=== PATIENT | male | born 1995 | race Two or more races ===

== ENCOUNTER 2017-11-06 16:12 | Emergency (ER) | payer OTHER ==
[~2017-11-06] VITALS: Ht 170.2 cm; Wt 111.1 kg
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
--- NOTE | 2017-11-06 16:38 | NUR ---
CALLED [facility], SPOKE WITH ORACIO, PRESENTED PT, TRANSFERRED CALL TO DR. LU
[2017-11-06] MEDS ORDERED: ONDANSETRON HCL/PF 4 MG/2 ML VIAL ONE (16:56)
[2017-11-06] MEDS ORDERED: HYDROMORPHONE INJ 2 MG/ML DISP.SYRIN ONE ×2 (16:57→19:43)
[2017-11-06] MEDS ORDERED: TDAP [DIPH/PERTUSSIS/TET] 0.5 ML VIAL IM ONE ×2 (16:57→17:00)
[2017-11-06] MEDS ORDERED: HYDROMORPHONE 1 MG/1 ML DISP.SYRIN IV ONE (17:00)
[2017-11-06] MEDS ORDERED: IV NS 0.9% 1,000 ML BAG IV ONE (17:00)
[2017-11-06] MEDS ORDERED: BACI/NEOM/POLY B OINT PKT 1 UDPKT PACKET TP ONE (17:00)
[2017-11-06] MEDS ORDERED: ONDANSETRON HCL/PF 4 MG/2 ML VIAL IVP ONE (17:00)
--- NOTE | 2017-11-06 17:44 | NUR ---
CALLED [facility] FOR TRANSPORT TO [facility], [place] [address], TRIP #[id number]
--- NOTE | 2017-11-06 18:54 | NUR ---
MD LU SPOKE TO [facility] REGARDING PATIENT'S TRANSFER.
--- NOTE | 2017-11-06 19:15 | NUR ---
REPORT RECEIVED FROM IAN HAYNES FOR [facility].
--- NOTE | 2017-11-06 19:45 | NUR ---
MEDICATED PER MD ORDERS. VSS.
--- NOTE | 2017-11-06 19:50 | NUR ---
RECEIVED CALL FROM [phone].
[2017-11-06] MEDS ORDERED: HYDROMORPHONE INJ 2 MG/ML DISP.SYRIN IV ONE (20:00)
--- NOTE | 2017-11-06 20:52 | NUR ---
REPORT GIVEN TO ALEXANDRIA FRANCO WITH [facility] FOR [facility] FOR TRANSPORT TO [facility]. VSS.
[2017-11-06 20:55] VITALS: BP 138/83
== END 2017-11-06 20:58 | disposition short-term general hospital (02) ==
LOC: ER 16:14 → EDBD 16:14 → ER 20:58
DX: T20.20XA Burn of second degree of head, face, and neck, unspecified site, initial encounter (principal); T22.211A Burn of second degree of right forearm, initial encounter; T21.03XA Burn of unspecified degree of upper back, initial encounter; X10.2XXA Contact with fats and cooking oils, initial encounter; Y93.89 Activity, other specified; Y92.511 Restaurant or cafe as the place of occurrence of the external cause; Y99.8 Other external cause status
CPT/HCPCS: 90715; A4606; A6402; A6403; J1170; J2405; J7030; Z7610